=== PATIENT | female | born 1965 | race American Indian/Alaskan Native ===

== ENCOUNTER 2021-08-07 15:46 | Emergency (ER) | payer MEDICAID ==
[2021-08-07] MEDS ORDERED: ASPIRIN 81 MG TAB CHEW PO ONE (16:40)
--- NOTE | 2021-08-07 16:56 | Emergency Department Report ---
ED Palpitations HPI - General Chief Complaint: Chest Pain Stated Complaint: HEART ATTACT SYMPTOMS Time Seen by Provider: 08/07/21 16:40 Source: patient Mode of arrival: Ambulatory Limitations: No Limitations - History of Present Illness Initial Comments: Patient is 56-year-old female with history of paroxysmal atrial fibrillation and hypertension. Patient brought to the emergency room via EMS for evaluation of sudden onset of palpitation with irregular rhythm. Patient stated that she woke up this morning with no symptoms when she went to work she started having palpitation and near syncope. Patient stated that at that time she felt like some shortness of breath and chest pain. Upon arrival to the ER patient found to be in atrial fibrillation with RVR and heart rate of 155. Patient is converted to normal sinus rhythm without any medication. Patient stated that she was taking metoprolol and propafenone for atrial fibrillation and she saw a pharmacist assistant here and denied to give her her propafenone and she is upset about that she stated that this only medicine to control her heart rate. She said she had similar episode approximately 6 months ago. MD Complaint: rapid heart beat, palpitations, irregular heart beat, atrial fibrillation -: Sudden Context: occured during exertion Arrythmia History: atrial fibrillation Associated Symptoms: chest pain, shortness of breath, near-syncope - Related Data Allergies Allergy/AdvReac Type Severity Reaction Status Date / Time erythromycin base Allergy Nausea Verified 08/07/21 15:56 ED Review of Systems ROS: Stated complaint: HEART ATTACT SYMPTOMS Other details as noted in HPI Comment: All other systems reviewed and negative Constitutional: denies: chills, fever Respiratory: shortness of breath, SOB with exertion, SOB at rest. denies: cough, wheezing Cardiovascular: chest pain, palpitations Gastrointestinal: denies: abdominal pain, nausea, vomiting Neurological: denies: headache, weakness, numbness, paresthesias, confusion ED Physical Exam - General Limitations: No Limitations General appearance: alert, in distress - Head Head exam: Present: atraumatic, normocephalic, normal inspection - Eye Eye exam: Present: normal appearance - ENT ENT exam: Present: normal exam, normal orophraynx, mucous membranes moist - Neck Neck exam: Present: normal inspection, full ROM. Absent: tenderness, meningismus - Respiratory Respiratory exam: Present: normal lung sounds bilaterally - Cardiovascular Cardiovascular Exam: Present: tachycardia, irregular rhythm - GI/Abdominal GI/Abdominal exam: Present: soft, normal bowel sounds. Absent: distended, tenderness, guarding, rebound, rigid, organomegaly, mass, bruit, pulsatile mass, hernia - Extremities Exam Extremities exam: Present: normal inspection, full ROM, normal capillary refill. Absent: tenderness - Back Exam Back exam: Present: normal inspection, full ROM. Absent: CVA tenderness (R), CVA tenderness (L) - Neurological Exam Neurological exam: Present: alert, oriented X3, CN II-XII intact, reflexes normal. Absent: motor sensory deficit - Psychiatric Psychiatric exam: Present: normal mood - Skin Skin exam: Present: warm, intact, normal color ED Course Vital Signs 08/07/21 08/07/21 08/07/21 15:59 16:29 16:30 Temperature 89.7 F L Pulse Rate 53 L 98 H 103 H Respiratory 18 16 20 Rate Blood Pressure 155/100 155/100 Blood Pressure 146/75 [Right] O2 Sat by Pulse 100 100 Oximetry 08/07/21 08/07/21 08/07/21 16:45 17:01 17:15 Temperature Pulse Rate 92 H 92 H 84 Respiratory 14 16 16 Rate Blood Pressure 161/87 147/92 147/92 Blood Pressure [Right] O2 Sat by Pulse 100 100 99 Oximetry ED Medical Decision Making - Lab Data Result diagrams: 08/07/21 16:59 08/07/21 16:59 - EKG Data -: EKG Interpreted by Me Rate: tachycardia - EKG Data 08/07/21 16:57 Atrial fibrillation with RVR heart rate of 155. - Radiology Data Radiology results: report reviewed - Medical Decision Making Patient is 56-year-old female with history of paroxysmal atrial fibrillation and hypertension. Patient brought to the emergency room via EMS for evaluation of sudden onset of palpitation with irregular rhythm. Patient stated that she woke up this morning with no symptoms when she went to work she started having palpitation and near syncope. Patient stated that at that time she felt like some shortness of breath and chest pain. Upon arrival to the ER patient found to be in atrial fibrillation with RVR and heart rate of 155. Patient is converted to normal sinus rhythm without any medication. Patient stated that she was taking metoprolol and propafenone for atrial fibrillation and she saw a pharmacist assistant here and denied to give her her propafenone and she is upset about that she stated that this only medicine to control her heart rate. She said she had similar episode approximately 6 months ago. Repeat EKG showed normal sinus rhythm with a heart rate of 86. Patient remained stable in the ER. Labs reviewed and is unremarkable including a thyroid panel. Chest x-ray is negative. I discussed the patient with Dr. Wagner, he agreed to admit the patient to medical service for further management. Critical care attestation.: If time is entered above; I have spent that time in minutes in the direct care of this critically ill patient, excluding procedure time. ED Disposition Clinical Impression: Atrial fibrillation with RVR Disposition: ADMITTED INPATIENT Is pt being admited?: Yes Condition: Stable
--- NOTE | 2021-08-07 17:08 | XRay Report ---
CHEST 1 VIEW INDICATION / CLINICAL INFORMATION: Chest Pain. COMPARISON: 08/08/2019 FINDINGS: SUPPORT DEVICES: None. HEART / MEDIASTINUM: No significant abnormality. LUNGS / PLEURA: No significant pulmonary or pleural abnormality. No pneumothorax. ADDITIONAL FINDINGS: No significant additional findings. IMPRESSION: 1. No acute findings. Signer Name: Luisito Arroyo MD Signed: 08/07/2021 5:04 PM Workstation Name: [id number]
[2021-08-07 17:12] LABS: Basophils % (Auto) 0.6 % (0.0-1.8); Eosinophils # (Auto) 0.1 K/mm3 (0.0-0.4); Eosinophils % (Auto) 1.4 % (0.0-4.3); Hematocrit 42.8 % (30.3-42.9); Hemoglobin 14.2 gm/dl (10.1-14.3); Lymphocytes # (Auto) 1.6 K/mm3 (1.2-5.4); Lymphocytes % (Auto) 30.8 % (13.4-35.0); Mean Corpuscular HGB Conc 33 % (30-34); Mean Corpuscular Volume 96 fl (79-97); Monocytes # (Auto) 0.3 K/mm3 (0.0-0.8); Monocytes % (Auto) 6.1 % (0.0-7.3); Platelet Count 190 K/mm3 (140-440); Red Blood Count 4.44 M/mm3 (3.65-5.03); Red Cell Distribution Width 13.4 % (13.2-15.2)
[2021-08-07 17:21] LABS: INR 0.94 (0.87-1.13)
[2021-08-07 17:22] LABS: Partial Thromboplastin Time 34.8 Sec. (24.2-36.6)
[2021-08-07 17:25] VITALS: BP 147/92
[2021-08-07 17:41] LABS: Alanine Aminotransferase 20 units/L (7-56); Albumin 4.5 g/dL (3.9-5)
[2021-08-07 17:42] LABS: Bilirubin,Direct < 0.2 mg/dL (0-0.2)
[2021-08-07 17:43] LABS: BUN/Creatinine Ratio 18; Blood Urea Nitrogen 16 mg/dL (7-17); Calcium 9.3 mg/dL (8.4-10.2); Hemolysis Index 6
[2021-08-07 17:47] LABS: Free T4 (Free Thyroxine) 1.22 ng/dL (0.76-1.46)
--- NOTE | 2021-08-08 11:12 | Electrocardiograph Report ---
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 Ventricular premature complex Prolonged QT interval No previous ECG available for comparison Electronically Signed On 08-08-2021 11:12:11 EDT by Telly Easley
--- NOTE | 2021-08-08 11:16 | Electrocardiograph Report ---
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 Previous EKG done approximately one hour ago showed short runs of MAT,making ST evaluation difficult. Correlate clinically. Electronically Signed On 08-08-2021 11:15:41 EDT by Telly Easley
== END 2021-08-07 19:41 | disposition admitted as inpatient to this hospital (09) ==
LOC: ED 15:46
DX: I48.91 Unspecified atrial fibrillation (principal); Z87.891 Personal history of nicotine dependence; I10 Essential (primary) hypertension
CPT/HCPCS: 36415; 71045; 80048; 80076; 83880; 84439; 84443; 84484; 85025; 85610; 85730; 93005; 99284